=== PATIENT | female | born 1980 | race Hispanic/Latino ===

== ENCOUNTER 2017-04-17 01:01 | Inpatient (IN) | payer MEDICAID ==
[~2017-04-17] VITALS: Ht 160 cm; Wt 64.9 kg
[2017-04-17] MEDS ORDERED: LACTATED RINGERS 1000ML 1,000 ML IV PRN (01:19)
[2017-04-17] MEDS ORDERED: LACTATED RINGERS 1000ML 1,000 ML IV SCH (01:30)
[2017-04-17 01:39] LABS: HEMATOCRIT 40.1 % (36-48); MEAN CORPUSCULAR HEMOGLOBIN 31.4 pg (27.0-33.0); MEAN CORPUSCULAR HGB CONC 34.4 g/dL (32.0-36.0); MEAN CORPUSCULAR VOLUME 91.4 fL (79-99); NUCLEATED RED BLOOD CELLS 0.4 % (0.0-0.19); PLATELET COUNT (AUTO) 201 K/uL (130-400); RED BLOOD CELL COUNT(AUTO) 4.39 MIL/uL (4.00-5.50); RED CELL DISTRIBUTION WIDTH 15.7 % (11.0-15.5); WHITE BLOOD COUNT (AUTO) 9.7 K/uL (4.8-10.8)
[2017-04-17 01:41] LABS: APPEARANCE,URINE Clear (CLEAR); BILIRUBIN,URINE Negative (NEGATIVE); COLOR,URINE Yellow (YELLOW); GLUCOSE, URINE (UA) Negative (NEGATIVE); KETONES,URINE Negative (NEGATIVE); LEUKOCYTE ESTERASE ,URINE Trace (NEGATIVE); NITRATE,URINE Negative (NEGATIVE); OCCULT BLOOD,URINE Negative (NEGATIVE); PH,URINE 6.5 (5.0-8.0); PROTEIN,URINE Negative (NEGATIVE); UROBILINOGEN,URINE 0.2 mg/dL (0.2-1.0)
[2017-04-17 02:11] LABS: BACTERIA,URINE Few /HPF (None Seen); SQUAMOUS EPITHELIAL CELL,UR 0-2 /LPF (0-2)
[2017-04-17] MEDS ORDERED: OXYTOCIN-LR 20 UNITS/1000 ML 1,000 ML IV SCH ×2 (02:15→04:15)
[2017-04-17] MEDS ORDERED: LACTATED RINGERS 1000ML 1,000 ML IV ONE (02:20)
[2017-04-17] MEDS ORDERED: OXYTOCIN 10 USP UNITS/ML ONE (02:20)
[2017-04-17] MEDS ORDERED: MISOPROSTOL 200 MCG TABLET ONE (02:23)
[2017-04-17] MEDS ORDERED: DIPH,PERTUSS(ACELL),TET VAC/PF 0.5 ML VIAL IM PRN (04:15)
[2017-04-17] MEDS ORDERED: BENZOCAINE/LANOLIN/ALOE VERA 60 ML AEROSOL TP PRN (04:15)
[2017-04-17] MEDS ORDERED: ACETAMINOPHEN-CODEINE 300/30MG TAB PO PRN (04:15)
[2017-04-17] MEDS ORDERED: WITCH HAZEL 1 PAD TP PRN (04:15)
[2017-04-17] MEDS ORDERED: LANOLIN 30GM OINTMENT TP PRN (04:15)
[2017-04-17] MEDS: IBUPROFEN 800 MG TAB PO PRN (05:47)
[2017-04-17 05:57] VITALS: BP 133/85
[2017-04-17] MEDS ORDERED: PREN1COM14 PO (05:58)
[2017-04-17 07:46] VITALS: BP 122/64
[2017-04-17] MEDS: DOCUSATE SODIUM 100 MG CAP PO SCH ×2 (08:21→21:02)
[2017-04-17 11:28] VITALS: BP 104/57
[2017-04-17 15:28] VITALS: BP 113/81
[2017-04-17 19:42] VITALS: BP 109/59
[2017-04-17 23:04] VITALS: BP 119/80
[2017-04-18 03:13] VITALS: BP 102/64
[2017-04-18 08:05] VITALS: BP 116/84
[2017-04-18 08:25] LABS: HEPATITIS Bs ANTIGEN SCREEN P Negative (Negative)
[2017-04-18] MEDS: DOCUSATE SODIUM 100 MG CAP PO SCH (08:50)
[2017-04-18 11:08] VITALS: BP 121/71
[2017-04-18] MEDS: IBUPROFEN 800 MG TAB PO PRN (14:07)
== END 2017-04-18 15:15 | disposition home or self-care (01) | DRG 560 ==
LOC: EDH 01:01 → LDH 01:08 → OBSVTOIN 01:19 → LDH 03:08 → WSH 05:25
PROC: 10E0XZZ Delivery of Products of Conception, External Approach (ICD-10-PCS; principal; 2017-04-17)
PROC: 10907ZC Drainage of Amniotic Fluid, Therapeutic from Products of Conception, Via Natural or Artificial Opening (ICD-10-PCS; 2017-04-17)
DX: O69.81X0 Labor and delivery complicated by cord around neck, without compression, not applicable or unspecified (principal); Z37.0 Single live birth; Z3A.38 38 weeks gestation of pregnancy
CPT/HCPCS: 36415; 81001; 85027; 86592; 86850; 86900; 86901; 87340; J2590; J7120

== ENCOUNTER 2017-06-05 06:59 | Day surgery (SDC) | payer MEDICAID ==
[2017-06-04 12:05] LABS: BASOPHILS % (AUTO) 0.4 % (0.0-5.0); EOSINOPHILS % (AUTO) 1.2 % (0.0-8.0); HEMATOCRIT 40.1 % (36-48); MEAN CORPUSCULAR HEMOGLOBIN 31.3 pg (27.0-33.0); MEAN CORPUSCULAR HGB CONC 34.3 g/dL (32.0-36.0); MEAN CORPUSCULAR VOLUME 91.3 fL (79-99); NEUTROPHILS % (AUTO) 56.4 % (40.0-77.0); PLATELET COUNT (AUTO) 274 K/uL (130-400); RED BLOOD CELL COUNT(AUTO) 4.39 MIL/uL (4.00-5.50); RED CELL DISTRIBUTION WIDTH 14.7 % (11.0-15.5); WHITE BLOOD COUNT (AUTO) 5.5 K/uL (4.8-10.8)
[2017-06-04 12:12] VITALS: BP 118/68
[2017-06-05] VITALS (17 sets, daily range): BP systolic 103–127; BP diastolic 54–78
[~2017-06-05] VITALS: Ht 160 cm; Wt 59.7 kg
[~2017-06-05 06:59] MED LIST: CALDOLOR 800MG+NS 250ML 250 ML IV SCH; CLINDAMYCIN 600 MG/D5% WATER 50 ML IV SCH; LACTATED RINGERS 1000ML 1,000 ML IV SCH; LEVOFLOXACIN 500 MG/D5W 100 ML 100 ML IV SCH; PREN1COM14 PO
[2017-06-05] MEDS ORDERED: BUPIVACAINE/PF 0.25% 30ML VIAL IJ ONE (07:39)
[2017-06-05] MEDS ORDERED: OCTYL 2-CYANOACRYLATE 1 EACH TP ONE (07:39)
[2017-06-05] MEDS ORDERED: PROPOFOL 10 MG/ML 20ML VIAL IV ONE (08:22)
[2017-06-05] MEDS ORDERED: MIDAZOLAM HCL 1 MG/ML 2ML VIAL ONE (08:27)
[2017-06-05] MEDS ORDERED: FENTANYL CITRATE PF 50 MCG/1 ML 2ML VIAL ONE (08:27)
[2017-06-05] MEDS ORDERED: LIDOCAINE HCL 2% JELLY 5 ML ONE (08:57)
[2017-06-05] MEDS ORDERED: GLYCOPYRROLATE 0.2 MG/ML 5 ML VIAL ONE (08:57)
[2017-06-05] MEDS ORDERED: DEXAMETHASONE SOD PHOSPHATE 10MG/ML 1ML VIAL ONE (08:57)
[2017-06-05] MEDS ORDERED: ONDANSETRON HCL 4 MG/2 ML VIAL ONE (08:57)
[2017-06-05] MEDS ORDERED: NEOSTIGMINE 5MG/5ML SYR IV ONE (08:57)
[2017-06-05] MEDS ORDERED: LIDOCAINE HCL 4% LTA SOL 4 ML VIAL ONE (08:57)
[2017-06-05] MEDS ORDERED: LIDOCAINE HCL MPF 1% 5ML VIAL ONE (08:57)
[2017-06-05] MEDS ORDERED: MEPERIDINE-PF 50 MG/ML SYG ONE (09:21)
== END 2017-06-05 11:50 | disposition home or self-care (01) ==
LOC: DAH 06:59
DX: Z30.2 Encounter for sterilization (principal); E11.9 Type 2 diabetes mellitus without complications; Z88.0 Allergy status to penicillin; Z79.899 Other long term (current) drug therapy
CPT/HCPCS: 36415; 58670; 84703; 85025; 96365; A4215; A4351; C1769 ×2; J1100; J1741; J2175; J2250; J2405; J2704; J2710; J3010; J3490 ×3; J7040; J7120

== ENCOUNTER 2021-02-01 19:24 | Emergency (ER) | payer MEDICAID, OTHER ==
[~2021-02-01] VITALS: Ht 160 cm; Wt 54.4 kg
[~2021-02-01 19:24] MED LIST changes: -CALDOLOR 800MG+NS 250ML 250 ML IV SCH; -CLINDAMYCIN 600 MG/D5% WATER 50 ML IV SCH; -LACTATED RINGERS 1000ML 1,000 ML IV SCH; -LEVOFLOXACIN 500 MG/D5W 100 ML 100 ML IV SCH
[2021-02-01 20:16] LABS: BASOPHILS % (AUTO) 0.4 % (0.0-5.0); HEMATOCRIT 38.6 % (36-48); LYMPHOCYTES % (AUTO) 29.8 % (21.0-51.0); MEAN CORPUSCULAR HEMOGLOBIN 27.5 pg (27.0-33.0); MEAN CORPUSCULAR HGB CONC 32.6 g/dL (32.0-36.0); MEAN CORPUSCULAR VOLUME 84.1 fL (79-99); MONOCYTES % (AUTO) 8.7 % (3.0-13.0); NEUTROPHILS % (AUTO) 59.7 % (40.0-77.0); PLATELET COUNT (AUTO) 317 K/uL (130-400); RED BLOOD CELL COUNT(AUTO) 4.59 MIL/uL (4.00-5.50); RED CELL DISTRIBUTION WIDTH 14.3 % (11.0-15.5)
[2021-02-01 20:33] LABS: CREATININE 0.8 mg/dL (0.5-1.5); POTASSIUM 3.7 mmol/L (3.5-5.1)
[2021-02-01 20:41] LABS: APPEARANCE,URINE Clear (CLEAR); BILIRUBIN,URINE Negative (NEGATIVE); COLOR,URINE Yellow (YELLOW); GLUCOSE, URINE (UA) Negative (NEGATIVE); KETONES,URINE Negative (NEGATIVE); LEUKOCYTE ESTERASE ,URINE Negative (NEGATIVE); NITRATE,URINE Negative (NEGATIVE); OCCULT BLOOD,URINE Moderate (NEGATIVE); PH,URINE 6.5 (5.0-8.0); PROTEIN,URINE Negative (NEGATIVE); UROBILINOGEN,URINE 0.2 mg/dL (0.2-1.0)
[2021-02-01 20:43] LABS: ALBUMIN 4.2 g/dL (3.5-5.0); BILIRUBIN,TOTAL 0.4 mg/dL (0.2-1.0); TOTAL PROTEIN, SERUM 8.2 g/dL (6.0-8.3)
[2021-02-01 20:49] LABS: AMPHET/METH SCREEN,URINE NEGATIVE (NEGATIVE); BARBITURATE SCREEN, URINE NEGATIVE (NEGATIVE); BENZODIAZEPINES SCREEN,URINE NEGATIVE (NEGATIVE); CANNABINOID SCREEN,URINE POSITIVE (NEGATIVE); COCAINE SCREEN,URINE NEGATIVE (NEGATIVE); OPIATE SCREEN,URINE NEGATIVE (NEGATIVE); PHENCYCLIDINE SCREEN,URINE NEGATIVE (NEGATIVE)
[2021-02-01 20:52] LABS: WBC,URINE 0-1 /HPF (0-1)
[2021-02-01 20:53] LABS: BACTERIA,URINE Rare /HPF (None Seen); MUCUS,URINE Few LPF (None Seen); SQUAMOUS EPITHELIAL CELL,UR Few /HPF (0-2)
[2021-02-01 22:00] VITALS: BP 124/74
[2021-02-01] MEDS ORDERED: HYDR-4030 PO (22:19)
== END 2021-02-01 22:30 | disposition home or self-care (01) ==
LOC: EDH 19:24
DX: N93.9 Abnormal uterine and vaginal bleeding, unspecified (principal); F41.9 Anxiety disorder, unspecified; Z88.0 Allergy status to penicillin; Z98.51 Tubal ligation status
CPT/HCPCS: 36415; 71045; 80053; 80305; 81001; 84484; 84702; 85025; 86850; 86900; 86901; 93005

== ENCOUNTER 2021-10-02 15:35 | Emergency (ER) | payer MEDICAID, OTHER ==
[~2021-10-02] VITALS: Ht 160 cm; Wt 54.4 kg
[~2021-10-02 15:35] MED LIST changes: +HYDR-4030 PO
[2021-10-02 15:40] VITALS: BP 108/68
[2021-10-02 16:05] LABS: BASOPHILS % (AUTO) 0.3 % (0.0-5.0); EOSINOPHILS % (AUTO) 0.7 % (0.0-8.0); HEMATOCRIT 39.4 % (36-48); LYMPHOCYTES % (AUTO) 22.6 % (21.0-51.0); MEAN CORPUSCULAR HEMOGLOBIN 28.8 pg (27.0-33.0); MEAN CORPUSCULAR VOLUME 84.7 fL (79-99); MONOCYTES % (AUTO) 5.9 % (3.0-13.0); NEUTROPHILS % (AUTO) 70.3 % (40.0-77.0); PLATELET COUNT (AUTO) 295 K/uL (130-400); RED BLOOD CELL COUNT(AUTO) 4.65 MIL/uL (4.00-5.50); RED CELL DISTRIBUTION WIDTH 13.6 % (11.0-15.5); WHITE BLOOD COUNT (AUTO) 5.9 K/uL (4.8-10.8)
[2021-10-02 16:10] LABS: APPEARANCE,URINE CLEAR (CLEAR); BILIRUBIN,URINE NEGATIVE (NEGATIVE); COLOR,URINE YELLOW (YELLOW); GLUCOSE, URINE (UA) NEGATIVE (NEGATIVE); KETONES,URINE NEGATIVE (NEGATIVE); LEUKOCYTE ESTERASE ,URINE TRACE (NEGATIVE); NITRATE,URINE NEGATIVE (NEGATIVE); OCCULT BLOOD,URINE LARGE (NEGATIVE); PROTEIN,URINE NEGATIVE (NEGATIVE); UROBILINOGEN,URINE 0.2 mg/dL (0.2-1.0)
[2021-10-02 16:15] LABS: HCG,QUAL RESULT NEGATIVE (NEGATIVE)
[2021-10-02 16:16] LABS: CREATININE 0.9 mg/dL (0.5-1.5); POTASSIUM 3.8 mmol/L (3.5-5.1)
[2021-10-02 16:25] LABS: BILIRUBIN,TOTAL 0.6 mg/dL (0.2-1.0)
[2021-10-02 16:43] LABS: BACTERIA,URINE Rare /HPF (None Seen); RBC,URINE None Seen /HPF (0-1); SQUAMOUS EPITHELIAL CELL,UR 0-2 /HPF (0-2); WBC,URINE 0-1 /HPF (0-1)
[2021-10-02] MEDS ORDERED: KETOROLAC 30MG VIAL (30MG/ML) IM ONE (19:00)
[2021-10-02] MEDS ORDERED: DIAZEPAM 5 MG TABLET PO ONE (19:00)
[2021-10-02] MEDS ORDERED: IBUP-2070 PO (19:04)
[2021-10-02] MEDS ORDERED: ORPH100 PO (19:04)
[2021-10-02] MEDS ORDERED: OMEP20TA20 PO (19:04)
[2021-10-02] MEDS ORDERED: FAMO-136 PO (19:04)
== END 2021-10-02 19:30 | disposition home or self-care (01) ==
LOC: EDH 15:35
DX: M54.12 Radiculopathy, cervical region (principal); K21.9 Gastro-esophageal reflux disease without esophagitis; F41.9 Anxiety disorder, unspecified; Z79.1 Long term (current) use of non-steroidal anti-inflammatories (NSAID); Z79.899 Other long term (current) drug therapy; Z88.0 Allergy status to penicillin
CPT/HCPCS: 36415; 80053; 81001; 81025; 84484; 85025; 93005; 96372; 99284; J1885

== ENCOUNTER 2021-10-04 00:54 | Emergency (ER) | payer OTHER ==
[~2021-10-04] VITALS: Ht 160 cm; Wt 54.4 kg
[~2021-10-04 00:54] MED LIST changes: +FAMO-136 PO; +IBUP-2070 PO; +OMEP20TA20 PO; +ORPH100 PO
[2021-10-04 01:11] VITALS: BP 120/74
[2021-10-04] MEDS ORDERED: LORAZEPAM 2 MG/ML 1 ML VIAL IM ONE (01:30)
[2021-10-04] MEDS ORDERED: HYDR25CA PO (02:20)
== END 2021-10-04 02:33 | disposition home or self-care (01) ==
LOC: EDH 00:54
DX: F45.8 Other somatoform disorders (principal); F41.9 Anxiety disorder, unspecified; Z88.0 Allergy status to penicillin; Z79.1 Long term (current) use of non-steroidal anti-inflammatories (NSAID); Z79.899 Other long term (current) drug therapy
CPT/HCPCS: 93005; 96372; 99283; J2060

== ENCOUNTER 2021-10-06 12:32 | Emergency (ER) | payer OTHER ==
[~2021-10-06] VITALS: Ht 160 cm; Wt 54.4 kg
[~2021-10-06 12:32] MED LIST changes: +HYDR25CA PO
[2021-10-06 12:34] VITALS: BP 127/43
[2021-10-06 12:55] LABS: APPEARANCE,URINE CLEAR (CLEAR); BILIRUBIN,URINE NEGATIVE (NEGATIVE); COLOR,URINE YELLOW (YELLOW); GLUCOSE, URINE (UA) NEGATIVE (NEGATIVE); KETONES,URINE NEGATIVE (NEGATIVE); LEUKOCYTE ESTERASE ,URINE NEGATIVE (NEGATIVE); NITRATE,URINE NEGATIVE (NEGATIVE); OCCULT BLOOD,URINE NEGATIVE (NEGATIVE); PROTEIN,URINE NEGATIVE (NEGATIVE); UROBILINOGEN,URINE 0.2 mg/dL (0.2-1.0)
[2021-10-06 13:12] LABS: HCG,QUAL RESULT NEGATIVE (NEGATIVE)
== END 2021-10-06 14:32 | disposition home or self-care (01) ==
LOC: EDH 12:32
DX: R35.0 Frequency of micturition (principal); M54.2 Cervicalgia; F41.9 Anxiety disorder, unspecified; Z79.1 Long term (current) use of non-steroidal anti-inflammatories (NSAID); Z79.899 Other long term (current) drug therapy; Z87.440 Personal history of urinary (tract) infections; Z88.0 Allergy status to penicillin
CPT/HCPCS: 81003; 81025

== ENCOUNTER 2021-10-27 06:22 | Emergency (ER) | payer OTHER ==
[~2021-10-27] VITALS: Ht 160 cm; Wt 52.6 kg
[2021-10-27] MEDS ORDERED: LORA10TA7 PO (07:46)
[2021-10-27] MEDS ORDERED: FLUT16H NASAL (07:46)
[2021-10-27] MEDS ORDERED: ACET-66 PO (07:46)
[2021-10-27] MEDS ORDERED: 0.9%NACL 1000ML 1,000 ML IV SCH (08:00)
[2021-10-27 08:26] VITALS: BP 110/70
== END 2021-10-27 08:30 | disposition home or self-care (01) ==
LOC: EDH 06:22
DX: U07.1 COVID-19 (principal); F41.9 Anxiety disorder, unspecified; Z88.0 Allergy status to penicillin; Z79.1 Long term (current) use of non-steroidal anti-inflammatories (NSAID); Z79.899 Other long term (current) drug therapy
CPT/HCPCS: 99283; 87635; 87880; 87804 ×2; C9803